=== PATIENT | female | born 1970 | race Caucasian/White ===

== ENCOUNTER 2019-02-01 00:32 | Outpatient (CLI) | payer BC, SELFPAY ==
--- NOTE | 2019-02-01 11:25 | DI.MAMMO_ITS ---
SYMPTOM/DIAGNOSIS: SCREENING, Z12.31 MAMMOGRAMS: Mammograms were interpreted according to the usual protocol including computer analysis with CAD system, tomosynthesis and C view imaging. Comparison is with the prior examinations. No suspicious masses or microcalcifications are seen. There is no definite evidence of malignancy. IMPRESSION: Negative mammogram. Routine screening is recommended. Category 1. Breast density B. MQSA ASSESSMENT OF FINDINGS: Negative. Category 1. Patient will receive a letter notifying them of these results. BI-RADS category B. There are scattered areas of fibroglandular density.
== END 2019-02-01 00:52 ==
PROVIDERS: PCP Nurse Practitioner Family; Visit Provider Nurse Practitioner Women's Health
DX: Z12.31 Encounter for screening mammogram for malignant neoplasm of breast (principal)
CPT/HCPCS: 77063; 77067

== ENCOUNTER 2019-02-01 11:25 | Outpatient (CLI) | payer BC, SELFPAY ==
[2019-02-01 12:03] LABS: HCT 42.2 % (36.0-46.0); HGB 13.4 g/dL (12.0-15.5); Mean Corp. HGB Concentration 31.8 g/dL (32.0-36.0); Mean Corpuscular Hemoglobin 29.8 pg (27.0-33.0); Mean Corpuscular Volume 93.8 fL (80-95); Mean Platelet Volume 9.7 fL (8.0-11.0); Platelet Count 272 x1000/uL (130-400); RBC Distribution Width 12.8 % (11.7-14.6); White Blood Cell Count 7.15 k/cumm (4.4-10.8)
[2019-02-01 13:02] LABS: Hemoglobin A1C 5.5 % (4.5-6.2)
[2019-02-01 13:03] LABS: ALT 39 U/L (12-78); AST 23 U/L (15-37); Albumin 3.8 g/dL (3.4-5.0); Alkaline Phosphatase 60 U/L (46-116); Bilirubin, Direct 0.16 mg/dL (0.00-0.20); Bilirubin, Total 0.7 mg/dL (0.2-1.0); TSH (W/Ref FT4) 3.75 uIU/mL (0.358-3.74); Total Protein 6.9 g/dL (6.4-8.2)
[2019-02-01 13:20] LABS: FREE T4 0.92 ng/dL (0.76-1.46)
[2019-02-01 13:34] LABS: Cholesterol 219 mg/dL (50-200); HDL Cholesterol 94 mg/dL (40-60); LDL CHOLESTEROL 105 mg/dL (<100); Triglyceride 77 mg/dL (30-150)
== END 2019-02-01 11:45 ==
PROVIDERS: PCP Nurse Practitioner Family; Visit Provider Nurse Practitioner Women's Health
DX: N92.6 Irregular menstruation, unspecified (principal); F10.10 Alcohol abuse, uncomplicated; Z13.220 Encounter for screening for lipoid disorders; Z13.1 Encounter for screening for diabetes mellitus; Z13.29 Encounter for screening for other suspected endocrine disorder
CPT/HCPCS: 36415; 80061; 80076; 83721; 85027; 83036; 84439; 84443

== ENCOUNTER 2019-02-01 11:40 | Outpatient (REF) | payer BC, SELFPAY ==
--- NOTE | 2019-02-01 11:20 | PAPFT_PTH ---
PATIENT: Ximena Gaytan LOC: [facility] U#:[id number] AGE/SX: 49/F ROOM: RE02/01/[address]: Hali Marsh NP : 1970 BED: DIS: 02/01/2019 SPEC #: [id number] RECD: 02/01/19 18:05 STATUS: ZAHRA REMaryse #: [id number] JONE: 02/01/19 11:[address]: Hali Marsh NP DEPT: [facility] Cytology RECD BY: Cecily Jara ENTERED: 02/01/19 18:05 SP TYPE: PAPFT OTHR DR: Chitra Knox Tissues: 1 - CX/ENDOCX FOR PAP SMEARS Procedures: PAP THIN PREP/[facility] Screening HPV DNA PROBE Comments: [id number]
== END 2019-02-01 12:00 ==
LOC: LBN 11:40
PROVIDERS: PCP Nurse Practitioner Family; Visit Provider Nurse Practitioner Women's Health
DX: Z12.4 Encounter for screening for malignant neoplasm of cervix (principal); Z11.51 Encounter for screening for human papillomavirus (HPV)
CPT/HCPCS: 88142; 87624

== ENCOUNTER 2019-03-30 08:56 | Day surgery (SDC) | payer BC, SELFPAY ==
[2019-03-30 09:05] VITALS: BP 122/71; PULSE 62; RESP 16; TEMP 35.5; O2SAT 100
[2019-03-30] MEDS: Lactated Ringers 1,000 ML 80 ML IV (09:38)
--- NOTE | 2019-03-30 10:50 | BOWEL_PTH ---
PATIENT: Ximena Gaytan LOC: [facility] U#:[id number] AGE/SX: 49/F ROOM: RE03/30/[address]: Genet Felton : 1970 BED: DIS: 03/30/2019 SPEC #: [id number] RECD: 03/30/19 12:54 STATUS: ZAHRA REQ #: [id number] JONE: 03/30/19 10:[address]: Genet Felton DEPT: Surgical Specimen RECD BY: Cecily Jara ENTERED: 03/30/19 12:55 SP TYPE: Bowel OTHR DR: Chitra Knox Tissues: 1 - BIOPSY BOWEL Procedures: GROSS AND MICRO LEVEL 4 Comments: [id number]
--- NOTE | 2019-03-30 11:04 | COLE_ITS ---
Date of service: 03/30/19 Time of Service: 10:59 Colonoscopy Report Date of procedure: 03/30/19 Pre-op diagnosis general: CRC screen Post-op diagnosis procedure note: other (sm polyps- most likely hyperplatic or lymphoid ) Procedure: CE and polyp removal Surgeon: Genet Felton Anesthesia proc note operative: GETA Estimated blood loss (mL): 1 Pathology: other Complications: None Disposition: same day Indications: screen Prep: Miralax Retraction Time: 10 mins Findings: pt had prominent lymphoid tissue present in colon. One outside industrial sales representative sample was removed. Procedure Description: After informed consent was obtained the patient was taken to the procedure room and placed in a left decubitous position. Monitors were applied and a time out was done. The patients name, date of , procedure, allergies to medications and metal in their body was reviewed. The patient was then sedated. Once sedated and comfortable a rectal exam was done. External exam was normal. Internal exam revealed a normal sphincter tone and no palpable masses. The scope was then introduced and retrofelexed. No internal hemorrhoids were identified. The scope was then advanced to the cecum without difficulty. The TI and appendiceal orifice were identified. The prep was good. The scope was then slowly retracted over 10 minutes back into the rectum. Polyps were removed at 30cm. Most likely this is lymphoid tissue. were some prominence of the lymph tissue. But for the most part- muscosa and vasculature is nl. No avm or divertic. The scope was removed and the patient was woken up and taken back to Same day surgery in stable condition. The patient tolerated the procedure well and there were no immediate complications. Follow up: The patient should follow up in 5-10 yrs path pd, years unless they develop changes in bowel habits or other new gastrointestinal complaints.
--- NOTE | 2019-03-30 11:04 | W.PM.DSUDISC ---
Discharge Plan Disposition Patient Disposition: HOME Condition: Good Discharge Details Reason For Visit: colon scope Attending Provider: Genet Felton Primary Care Provider: Chitra Knox Home Meds and New Rx's Prescriptions: Continued multivitamin [Daily Multi-Vitamin] 1 EACH tablet 1 ea PO DAILY RF: 0 ibuprofen 800 MG tablet 800 mg PO Q8H PRN Qty: 30 RF: 3 Discontinued polyethylene glycol 3350 17 gram/dose powder 238 g PO ONCE Qty: 238 RF: 0 bisacodyl [Dulcolax (bisacodyl)] 5 mg tablet,delayed release (DR/EC) 5 mg PO ONCE Qty: 4 RF: 0 Discharge Instructions Instructions: High Fiber Diet (GEN) Additional Instructions: Findings:normal sm Bx taken. will send a letter in 2-3 wks w/ results. Follow up: repeat scope in 5-10 yrs depending on Bx results Please call if you develop: fevers >101.5 Nausea or Vomiting Abdominal pain that is not transient DAY SURGERY UNIT POST COLONOSCOPY INSTRUCTIONS 1. Because there will be medication in your system for the next 24 hours, you may feel a little sleepy. Your coordination will be affected. Therefore: a. Do not drive or operate dangerous equipment for 24 hours. b. Do not drink alcohol beverages for 24 hours (not even beer). c. Plan to go home and rest for the day. 2. Generally there are no restrictions on your activity after a day or so has gone by, but you may feel a bit fatigued for a few days. 3 After you arrive home you may have a light meal and return to a normal diet as you can tolerate it without feeling sick to your stomach. 4. After surgery, you may feel pain or discomfort. This should be only transient, but if it persists please contact your doctor. 5. If there are any questions regarding the findings of your procedure, please feel free to contact your doctor. 6. If you are unable to contact your doctor with a problem, contact the hospital at [phone]. 7. Continue all your regular medications unless directed otherwise. I understand the above instructions and have no questions. Signature of Patient or Responsible Adult Escort Date/Time Name of Responsible Adult Escort Signature of Nurse Date/Time Activity:: no heavy lifting/driving/strenuous acitivty x 24 hrs Diet:: sm lt meals today Discharge Orders Discharge Orders: Discharge Order (Routine); Ordered 03/30/19 Ordered By: Genet Felton DS: Diagnosis Discharge Diagnosis (1) Encounter for screening colonoscopy: Status: Acute
[2019-03-30 11:30] VITALS: BP 112/66; PULSE 48; RESP 18; TEMP 35.6; O2SAT 99
== END 2019-03-30 11:42 | disposition home or self-care (01) ==
PROVIDERS: PCP Nurse Practitioner Family; Visit Provider Surgery
PROC: 0DJD8ZZ Inspection of Lower Intestinal Tract, Via Natural or Artificial Opening Endoscopic (ICD-10-PCS; CPT 45378; principal; 2019-03-30 09:45)
DX: Z12.11 Encounter for screening for malignant neoplasm of colon (principal); K63.5 Polyp of colon
CPT/HCPCS: 45380; 81025; 88305

== ENCOUNTER 2021-02-03 02:26 | Outpatient (CLI) | payer BC, SELFPAY ==
--- NOTE | 2021-02-03 08:30 | DI.MAMMO_ITS ---
EXAM: MG MAMMO SCREENING CLINICAL HISTORY: SCREENING,Z12.39 TECHNIQUE: Bilateral full field digital CC and MLO mammographic images were obtained with 3D tomosyn thesis and utilizing computer aided detection (CAD). COMPARISON: Available for comparison. FINDINGS: Masses/Architectural Distortion: None seen. Microcalcifications: No suspicious pleomorphic-type are seen. Skin Thickening/Nipple Retraction: None. IMPRESSION: 1. No significant interval change with no specific features of malignancy noted. 2. Unless there is more urgent need, screening mammography is recommended, as per [employer] guidelines. BI-RADS Category 1 - Negative Breast Density - Category B - Scattered areas of fibroglandular density Breast density category C or D implies that the patient has dense breast tissue. Dense breast tissue is very common and is not abnormal but dense breast tissue can make it harder to find cancer on a ma mmogram. Also, dense breast tissue may increase their breast cancer risk. This information about the result of the mammogram report was provided to the patient to raise their awareness. Use this report when you speak with the patient about their risks for breast cancer, which includes their family hist ory. At that time, you may recommend for more screening tests (Ultrasound or MRI) as they might be us eful based on their risk. A negative radiographic report should not delay biopsy if a dominant or clinically suspicious mass is present. Up to ten percent of cancers are not identified on mammography. A negative report may reinforce clinical impression. Adenosis and dense breasts may obscure an underlying neoplasm. False positive reports average 6 to 10%. Patient will receive a letter notifying them of these results.
== END 2021-02-03 02:46 ==
PROVIDERS: PCP Nurse Practitioner Family; Visit Provider Nurse Practitioner Women's Health
DX: Z12.31 Encounter for screening mammogram for malignant neoplasm of breast (principal)
CPT/HCPCS: 77063; 77067

== ENCOUNTER 2021-02-03 03:26 | Outpatient (CLI) | payer BC, SELFPAY ==
[2021-02-03 13:17] LABS: Calculated LDL 121 mg/dL (<100); Cholesterol 219 mg/dL (<200); HDL Cholesterol 82 mg/dL (40-60); Triglyceride 82 mg/dL (<150)
== END 2021-02-03 03:27 | disposition home or self-care (01) ==
LOC: LBO 03:26
PROVIDERS: PCP Nurse Practitioner Family; Visit Provider Nurse Practitioner Women's Health
DX: E78.2 Mixed hyperlipidemia (principal)
CPT/HCPCS: 36415; 80061

== ENCOUNTER 2022-03-01 00:54 | Outpatient (CLI) | payer BC, SELFPAY ==
--- NOTE | 2022-03-01 15:00 | DI.MAMMO_ITS ---
Exam(s) MAMMO SCREENING EXAM: MAMMO SCREENING CLINICAL HISTORY: screening. TECHNIQUE: Bilateral full field digital CC and MLO mammographic images were obtained with 3D tomosyn thesis and utilizing computer aided detection (CAD). COMPARISON: Prior mammograms were reviewed, the most recent being January 2021. FINDINGS: There has been no significant change in the appearance and distribution of the fibroglandular tissue. No CAD designations. There are no new spiculated masses nor malignant appearing microcalcification groups. There is no significant architectural distortion nor skin thickening-retraction. IMPRESSION: No radiographic evidence of malignancy. BI-RADS Category 1 - Negative Breast Density - Category B - Scattered areas of fibroglandular density Breast density Category C or D implies that the patient has dense breast tissue. Dense breast tissue can make it harder to find cancer on a mammogram. Dense breast tissue is also associated with an incr eased risk of breast cancer. This information about the result of the mammogram report was provided to the patient to raise their awareness. Use this report when you speak with the patient about their risks for breast cancer, which includes their family history. At that time, you may recommend additional screening tests (Ultrasoun d or MRI) as these tests may add significant information. A negative radiographic report should not delay biopsy if a dominant or clinically suspicious mass is present. Up to ten percent of cancers are not identified on mammography. A negative report may reinforce clinical impression. Adenosis and dense breasts may obscure an underlying neoplasm. False positive reports average 6 to 10%. Patient will receive a letter notifying them of these results.
== END 2022-03-01 01:14 ==
PROVIDERS: PCP Nurse Practitioner Family; Visit Provider Nurse Practitioner Women's Health
DX: Z12.31 Encounter for screening mammogram for malignant neoplasm of breast (principal)
CPT/HCPCS: 77063; 77067

== ENCOUNTER 2022-03-01 04:10 | Outpatient (CLI) | payer BC, SELFPAY ==
[2022-03-01 14:48] LABS: Calculated LDL 112 mg/dL (<100); Cholesterol 221 mg/dL (<200); HDL Cholesterol 94 mg/dL (40-60); TSH (W/Ref FT4) 2.67 uIU/mL (0.36-3.74); Triglyceride 79 mg/dL (<150)
== END 2022-03-01 04:11 | disposition home or self-care (01) ==
LOC: LBO 04:10
PROVIDERS: PCP Nurse Practitioner Family; Visit Provider Nurse Practitioner Women's Health
DX: E78.2 Mixed hyperlipidemia (principal); Z13.29 Encounter for screening for other suspected endocrine disorder
CPT/HCPCS: 36415; 80061; 84443

== ENCOUNTER 2023-05-04 00:39 | Outpatient (CLI) | payer BC, SELFPAY ==
--- NOTE | 2023-05-04 07:42 | DI.MAMMO_ITS ---
Exam(s) MAMMO SCREENING EXAM: MAMMO SCREENING CLINICAL HISTORY: screening TECHNIQUE: Bilateral full field digital CC and MLO mammographic images were obtained with 3D tomosyn thesis and utilizing computer aided detection (CAD). COMPARISON: Available for comparison. FINDINGS: Masses/Architectural Distortion: None seen. Microcalcifications: No suspicious pleomorphic-type are seen. Skin Thickening/Nipple Retraction: None. IMPRESSION: 1. No significant interval change with no specific features of malignancy noted. 2. Unless there is more urgent need, screening mammography is recommended, as per [employer] guidelines. BI-RADS Category 1 - Negative Breast Density - Category B - Scattered areas of fibroglandular density Breast density category C or D implies that the patient has dense breast tissue. Dense breast tissue is very common and is not abnormal but dense breast tissue can make it harder to find cancer on a ma mmogram. Also, dense breast tissue may increase their breast cancer risk. This information about the result of the mammogram report was provided to the patient to raise their awareness. Use this report when you speak with the patient about their risks for breast cancer, which includes their family hist ory. At that time, you may recommend for more screening tests (Ultrasound or MRI) as they might be us eful based on their risk. A negative radiographic report should not delay biopsy if a dominant or clinically suspicious mass is present. Up to ten percent of cancers are not identified on mammography. A negative report may reinforce clinical impression. Adenosis and dense breasts may obscure an underlying neoplasm. False positive reports average 6 to 10%. Patient will receive a letter notifying them of these results.
== END 2023-05-04 00:59 ==
LOC: DI 00:42
PROVIDERS: Visit Provider Nurse Practitioner Women's Health
DX: Z12.31 Encounter for screening mammogram for malignant neoplasm of breast (principal)
CPT/HCPCS: 77063; 77067

== ENCOUNTER 2024-10-08 01:10 | Outpatient (CLI) | payer BC, SELFPAY ==
--- NOTE | 2024-10-08 06:45 | DI.MAMMO_ITS ---
Exam(s) MAMMO SCREENING EXAM: MAMMO SCREENING CLINICAL HISTORY: screening,z12.39 TECHNIQUE: Mammograms were interpreted according to the usual protocol including computer analysis w [employer] CAD system, tomosynthesis and C-view imaging. COMPARISON: 2015 through 2022 FINDINGS: The breasts are composed of mainly fatty density , Breast Density category A. No suspicious masses or suspicious microcalcifications are seen. No skin thickening or abnormal axillary lymph nodes are seen. There has been no significant change from prior exams. IMPRESSION: BI-RADS Category 1, Negative mammogram Yearly screening mammography is recommended. Breast Density - Category A, fatty density. A negative radiographic report should not delay biopsy if a dominant or clinically suspicious mass is present. Up to ten percent of cancers are not identified on mammography. A negative report may reinforce clinical impression. Adenosis and dense breasts may obscure an underlying neoplasm. False positive reports average 6 to 10%. Patient will receive a letter notifying them of these results.
== END 2024-10-08 01:30 ==
LOC: DI 01:11
PROVIDERS: Visit Provider Nurse Practitioner Women's Health
DX: Z12.31 Encounter for screening mammogram for malignant neoplasm of breast (principal); R92.313 Mammographic fatty tissue density, bilateral breasts
CPT/HCPCS: 77063; 77067

== ENCOUNTER 2024-12-03 08:27 | Outpatient (REF) | payer BC, SELFPAY ==
--- NOTE | 2024-12-03 08:15 | PAPFT_PTH ---
PATIENT: Ximena Gaytan LOC: [facility] U#:[id number] AGE/SX: 54/F ROOM: RE12/03/[address]: Hali Marsh NP : 1970 BED: DIS: 12/03/2024 SPEC #: [id number] RECD: 12/03/24 12:56 STATUS: ZAHRA REMaryse #: [id number] JONE: 12/03/24 08:[address]: Hali Marsh NP DEPT: [facility] Cytology RECD BY: Cecily Jara ENTERED: 12/03/24 12:56 SP TYPE: PAPFT MICHELLE DR: Unknown,Unknown Tissues: 1 - CX/ENDOCX FOR PAP SMEARS Procedures: PAP THIN PREP/[facility] Screening HPV DNA PROBE Comments: [id number] (HPV 16 & 18/45)
== END 2024-12-03 08:28 | disposition home or self-care (01) ==
LOC: LBN 08:27
PROVIDERS: Visit Provider Nurse Practitioner Women's Health
DX: Z12.11 Encounter for screening for malignant neoplasm of colon (principal); Z12.4 Encounter for screening for malignant neoplasm of cervix; Z78.0 Asymptomatic menopausal state; B37.9 Candidiasis, unspecified
CPT/HCPCS: 88142; 87624